=== PATIENT | female | born 1985 | race Caucasian/White ===

== ENCOUNTER 2018-11-07 21:18 | Emergency (ER) | payer OTHER ==
[~2018-11-07] VITALS: Ht 175.3 cm; Wt 59.1 kg
[~2018-11-07 21:18] MED LIST: birth control pill PO
[2018-11-07 21:20] VITALS: BP 130/83
[2018-11-07] MEDS ORDERED: ACETAMINOPHEN 325 MG TABLET ONE (23:41)
--- NOTE | 2018-11-07 23:43 | NUR ---
PT PRESENTED WITH C/O RAO. PAIN IS ACROSS FOREHEAD. STARTED AT 1700. PT SEEN AT FOR SAME AND PRESCRIBED AMMOX FOR SINUS HEADACHE. PT APPROX 6 WEEKS PREG. MONITORS APPLIED, SIDERAILS UP X2, CALL LIGHT WITHIN REACH. MEDICATED PER MAR
[2018-11-08] MEDS ORDERED: ACETAMINOPHEN 325 MG TABLET PO ONE
== END 2018-11-08 00:35 | disposition home or self-care (01) ==
LOC: ED 11-08 00:20
DX: O26.891 Other specified pregnancy related conditions, first trimester (principal); J01.10 Acute frontal sinusitis, unspecified; J01.00 Acute maxillary sinusitis, unspecified; Z3A.01 Less than 8 weeks gestation of pregnancy
CPT/HCPCS: 99282